=== PATIENT | female | born 1980 | race Caucasian/White ===

== ENCOUNTER 2017-01-14 10:59 | Emergency (ER) | payer SELFPAY ==
[2017-01-14 13:37] LABS: APPEARANCE,URINE CLOUDY; BILIRUBIN,URINE NEGATIVE (NEGATIVE); GLUCOSE, URINE NEGATIVE (NEGATIVE); KETONES,URINE NEGATIVE (NEGATIVE); LEUKOCYTE ESTERASE,URINE LARGE (NEGATIVE); NITRITE,URINE NEGATIVE (NEGATIVE); PROTEIN,URINE NEGATIVE (NEGATIVE); URINE SPECIFIC GRAVITY 1.018; UROBILINOGEN,URINE NEGATIVE mg/dL (<2.0)
[2017-01-14 14:11] LABS: ABSOLUTE EOSINOPHILS # (AUTO) 0.1 10^3/uL (0.0-0.6); ABSOLUTE LYMPHOCYTES (AUTO) 2.9 10^3/uL (0.5-4.7); ABSOLUTE MONOCYTES (AUTO) 0.5 10^3/uL (0.1-1.4); ABSOLUTE NEUT (AUTO) 5.5 10^3/uL (1.7-8.2); BASOPHILS % (AUTO) 0.5 % (0-2); EOSINOPHILS % (AUTO) 0.7 % (0-6); HEMATOCRIT 37.8 % (36.0-47.0); HEMOGLOBIN 12.6 g/dL (12.0-15.5); LYMPHOCYTES % (AUTO) 32.2 % (13-45); MEAN CORPUSCULAR HEMOGLOBIN 28.3 pg (27.0-33.4); MEAN CORPUSCULAR HGB CONC 33.3 g/dL (32.0-36.0); MEAN CORPUSCULAR VOLUME 85 fl (80-97); MONOCYTES % (AUTO) 5.6 % (3-13); RED BLOOD COUNT 4.45 10^6/uL (3.72-5.28); RED CELL DISTRIBUTION WIDTH 16.2 % (11.5-14.0)
--- NOTE | 2017-01-14 14:19 | ER Document Report ---
ED GI/ - General Chief Complaint: Pain With Urination Stated Complaint: URINARY PROBLEMS,BACK PAIN Time Seen by Provider: 01/14/17 12:56 Notes: Patient is a 36 female who presents emergency department complaining of frequency, urgency, pyuria that started on Friday. She states that her hematuria started this morning with associated left flank pain. Denies any fevers chills, vomiting, diarrhea constipation. Admits to nausea. No PCP Past medical history significant for previous orthopedic injury the right arm. Past surgical history significant for cholecystectomy, tonsils and adenoids Social history significant for [id number]-oese smoking history, rare alcohol use. Denies any drug use. No allergies TRAVEL OUTSIDE OF THE [place] IN LAST 30 DAYS: No - Related Data Allergies/Adverse Reactions: No Known Allergies Allergy (Verified 01/14/17 11:19) Past Medical History - Social History Smoking Status: Current Every Day Smoker Chew tobacco use (# tins/day): No Frequency of alcohol use: Rare Drug Abuse: None Family History: DM, Hypertension Patient has suicidal ideation: No Patient has homicidal ideation: No Renal/ Medical History: Denies: Hx Peritoneal Dialysis Past Surgical History: Reports: Hx Cholecystectomy, Hx Orthopedic Surgery - right arm, Hx Tonsillectomy Review of Systems - Review of Systems Constitutional: See HPI Genitourinary: See HPI Musculoskeletal: See HPI -: Yes All other systems reviewed and negative Physical Exam - Vital signs Vitals: Temp Pulse Resp BP Pulse Ox 98.2 F 80 18 154/98 H 98 01/14/17 11:20 01/14/17 11:20 01/14/17 11:20 01/14/17 11:20 01/14/17 11:20 - Notes Notes: PHYSICAL EXAM GENERAL: Alert, interacts well. HEAD: Normocephalic, atraumatic. LUNGS: Clear to auscultation bilaterally, no wheezes, rales, or rhonchi. No respiratory distress. HEART: Regular rate and rhythm. No murmurs, gallops, or rubs. ABDOMEN: Soft, obese, nondistended, nontender. No guarding, rebound, or rigidity.. Bowel sounds present in all 4 quadrants. Female exam deferred EXTREMITIES: Moves all 4 extremities spontaneously. No edema, radial and dorsalis pedis pulses 2/4 bilaterally. No cyanosis. Back: Positive left CVA tenderness, negative right CVA tenderness. No tenderness to palpation in the paraspinous or spinous processes. NEUROLOGICAL: Alert and oriented x4. Normal speech. PSYCH: Normal affect, normal mood. SKIN: Warm, dry, normal turgor. No rashes or lesions noted. Course - Re-evaluation Re-evalutation: 01/14/17 14:53 Patient is a 36-year-old female who is hemodynamic stable, no acute distress and afebrile. Patient is tolerating p.o. without any difficulty. Evidence of white blood cell clumps noted on urinalysis indicating pyelonephritis which is consistent with history of left flank pain. Will discharge patient home on 2 week course of Bactrim and follow up with care in community clinic. Discussed signs and symptoms to be aware of indicating return to the emergency department. Patient expresses understanding. 01/14/17 18:29 The emergency department saying she is having itching after she took the Bactrim here. A new prescription for ciprofloxacin was called into her pharmacy. Discussed with patient signs and symptoms to be aware of indicating return to the emergency department. Patient expresses understanding - Vital Signs Vital signs: Temp Pulse Resp BP Pulse Ox 98.8 F 97 16 127/87 H 100 01/14/17 15:22 01/14/17 15:22 01/14/17 15:22 01/14/17 15:22 01/14/17 15:22 - Laboratory Result Diagrams: 01/14/17 13:50 01/14/17 13:50 Laboratory results interpreted by me: 01/14/17 01/14/17 11:25 13:50 RDW 16.2 H Ur Leukocyte Esterase LARGE H Discharge - Discharge Clinical Impression: Pyelonephritis Condition: Good Disposition: HOME, SELF-CARE Instructions: Trimethoprim-Sulfa ([facility]) Additional Instructions: PYELONEPHRITIS: Your evaluation shows evidence of pyelonephritis. This is an infection in the kidney. Typical symptoms are fever, pain in the flank, pain on urination, and frequent urination. Many cases of pyelonephritis can be treated at home. Hospital care may be necessary for patients who are very ill, or elderly or . Pyelonephritis is treated with antibiotics. Be sure to take all the medication as prescribed. Drink plenty of liquids (about three quarts per day) . You may take acetaminophen for fever. You should feel significantly improved within two days. You should have a recheck of your urine in about one week to insure that the infection is gone. Return for a re-examination if your symptoms worsen in any way -- such as high fever, shaking chills, severe weakness or dizziness, severe pain, or inability to pass your urine. ANTINAUSEA MEDICATION: You have been given a medication to suppress nausea and vomiting. This type of medication can be given as a shot, pill, or suppository. It will usually last for many hours. Pills and shots usually last six to eight hours, suppositories last about 12 hours. For the typical illness, only one or two doses of the medication may be necessary. Mild lightheadedness may occur. This type of medicine can cause drowsiness. Do not drive or operate dangerous machinery while under its influence. Do not mix with alcohol. See your doctor at once if you have muscle spasms or tightness, or uncontrollable motions (particularly of the neck, mouth, or jaw). Persistent vomiting or severe lightheadedness should also be evaluated by the physician. ANTIBIOTIC THERAPY: You have been given an antibiotic prescription. It's important that you take all the medication, unless instructed otherwise by your physician. Failure to complete the entire course can result in relapse of your condition. Common side effects of antibiotics include nausea, intestinal cramping, or diarrhea. Women may develop vaginal yeast infections, and babies can get yeast (thrush) in the mouth following the use of antibiotics. Contact your physician if you develop significant side effects from this medication. Allergy to this antibiotic can result in hives, wheezing, faintness, or itching. If symptoms of allergy occur, stop the medication and call the doctor. ROCEPHIN: You have been given an injection of an antibiotic called Rocephin ( ceftriaxone). Sometimes the injection must be combined with antibiotic pills. For some infections, such as an uncomplicated ear infection, Rocephin provides all the antibiotic that's needed. The antibiotic will be in your body for about two days. For serious infections, we usually repeat doses of Rocephin daily. Side effects are very unusual following a shot. Women may develop vaginal yeast infections, and babies can get yeast (thrush) in the mouth following the use of antibiotics. Contact your physician if you have symptoms with this medication. Allergy to this antibiotic can result in hives, wheezing, faintness, or itching. If symptoms of allergy occur, call the doctor at once. TRIMETHOPRIM-SULFA: You have been given a prescription for trimethoprim-sulfa (TMS, Septra, Bactrim). This is a combination antibiotic of the sulfa class, often used for urinary tract infections, middle ear infections, bronchitis, shigella intestinal infection, and Pneumocystis pneumonia. TMS is usually well-tolerated. Occasional side effects include nausea and decreased appetite. Septra is not recommended for infants less than two months of age. Do not take this medication if you have experienced severe side effects or allergy to sulfa medicine. You should stop this medicine at once and contact your physician if you develop any rash, joint pain, shortness of breath, bruising, or jaundice ( yellow color in the skin), or if you develop any other new or unusual symptoms. USE OF ACETAMINOPHEN (Tylenol): Acetaminophen may be taken for pain relief or fever control. It's much safer than aspirin, offering a wider range of "safe" dosages. It is safe during . Some brand names are Tylenol, Panadol, Datril, Anacin 3, Tempra, and Liquiprin. Acetaminophen can be repeated every four hours. The following are maximum recommended dosages: >89 pounds or adults 650 mg to 900 mg Acetaminophen can be repeated every four hours. Maximum dose not to exceed 4000 mg a day. ORAL NARCOTIC MEDICATION: You have been given a prescription for pain control. This medication is a narcotic. It's best taken with food, as nausea can result if taken on an empty stomach. Don't operate machinery or drive within six hours of taking this medication. Do not combine this medicine with alcohol, or with any medication which can cause sedation (such as cold tablets or sleeping pills) unless you get permission from the physician. Narcotics tend to cause constipation. If possible, drink plenty of fluids and eat a diet high in fiber and fruits. Please be aware that prescription narcotics also have the potential for abuse. People become addicted to these medications because of the general sense of wellbeing that they induce. This feeling along with a significant reduction in tension, anxiety, and aggression provides a stimulating seductive quality to these drugs. Once your pain is under control, we encourage you to discard your unused narcotics. FOLLOW-UP CARE: If you have been referred to a physician for follow-up care, call the physician s office for an appointment as you were instructed or within the next two days. If you experience worsening or a significant change in your symptoms, notify the physician immediately or return to the Emergency Department at any time for re-evaluation. Prescriptions: Sulfamethoxazole/Trimethoprim [Bactrim Ds Tablet] 1 each PO BID 14 Days Forms: Return to Work [facility]errals: [facility] [NO LOCAL MD] - Follow up as needed NOHELIA ALCANTAR MD [NO LOCAL MD] - Follow up as needed KORY APPLE DO [NO LOCAL MD] - Follow up as needed
[2017-01-14] MEDS ORDERED: SULFAMETHOXAZOLE/TRIMETHOPRIM 800-160 MG TABLET PO ONE (14:21)
[2017-01-14] MEDS ORDERED: CEFTRIAXONE INJ 250 MG VIAL IM ONE (14:21)
[2017-01-14] MEDS ORDERED: LIDOCAINE 1% INJ-PF (10 MG/ML) 30 ML SDV INJ ONE (14:21)
[2017-01-14 14:33] LABS: ANION GAP 6 (5-19); BLOOD UREA NITROGEN 13 mg/dL (7-20); CALCIUM 9.3 mg/dL (8.4-10.2); CARBON DIOXIDE 29 mmol/L (22-30); CHLORIDE 104 mmol/L (98-107); CREATININE RESULT 0.81 mg/dL (0.52-1.25); GLUCOSE 93 mg/dL (75-110); POTASSIUM 4.4 mmol/L (3.6-5.0); SODIUM 139.2 mmol/L (137-145)
[2017-01-14] MEDS ORDERED: ONDANSETRON ODT 4 MG TAB (6 TAB/DSPK) PO PRN (14:58)
[2017-01-14] MEDS ORDERED: HYDROCODONE/ACETAMINOPHEN 5-325 MG 6 TAB/DSPK PO PRN (14:58)
[2017-01-14 15:23] VITALS: BP 127/87
== END 2017-01-14 15:22 | disposition home or self-care (01) ==
LOC: ER 10:59
DX: N12 Tubulo-interstitial nephritis, not specified as acute or chronic (principal); L29.9 Pruritus, unspecified; T37.0X5A Adverse effect of sulfonamides, initial encounter; Y92.238 Other place in hospital as the place of occurrence of the external cause; R31.9 Hematuria, unspecified; R30.0 Dysuria; R39.15 Urgency of urination; R35.0 Frequency of micturition; R10.9 Unspecified abdominal pain; R11.0 Nausea; F17.200 Nicotine dependence, unspecified, uncomplicated
CPT/HCPCS: 99283; 96372; 36415; 85025; 81025; 80048; 81001; J3490; J0696

== ENCOUNTER 2017-04-26 16:15 | Emergency (ER) | payer SELFPAY ==
[2017-04-26] MEDS ORDERED: ONDANSETRON HCL INJ/PF 4 MG/2 ML SDV IV ONE (16:29)
[2017-04-26] MEDS ORDERED: NORMAL SALINE 1000 ML 1,000 ML IV ONE (16:29)
[2017-04-26] MEDS ORDERED: MORPHINE SULFATE 10 MG/ML INJ IV ONE (16:29)
--- NOTE | 2017-04-26 16:31 | ER Document Report ---
ED Medical Screen (RME) - General Chief Complaint: Bloody Stools Stated Complaint: ABDOMINAL PAIN Time Seen by Provider: 04/26/17 16:28 Mode of Arrival: Ambulatory Information source: Patient Notes: 37-year-old female who has had a recent colonoscopy presents with complaints of nausea with diarrhea noting to have bright red/darkish red blood I have greeted and performed a rapid initial assessment of this patient. A comprehensive ED assessment and evaluation of the patient, analysis of test results and completion of the medical decision making process will be conducted by additional ED providers. PHYSICAL EXAMINATION: GENERAL: Morbidly obese female HEAD: Atraumatic, normocephalic. EYES: Pupils equal round extraocular movements intact, conjunctiva are normal. ENT: Nares patent NECK: Normal range of motion LUNGS: No respiratory distress Musculoskeletal: Normal range of motion NEUROLOGICAL: Normal speech, normal gait. PSYCH: Normal mood, normal affect. SKIN: Warm, Dry, normal turgor, no rashes or lesions noted. TRAVEL OUTSIDE OF THE [place] IN LAST 30 DAYS: No - Related Data Allergies/Adverse Reactions: sulfamethoxazole [From Bactrim] Allergy (Verified 04/26/17 16:29) trimethoprim [From Bactrim] Allergy (Verified 04/26/17 16:29) Past Medical History - Social History Chew tobacco use (# tins/day): No Frequency of alcohol use: None Drug Abuse: None Renal/ Medical History: Denies: Hx Peritoneal Dialysis GI Medical History: Reports: Hx Gastroesophageal Reflux Disease Past Surgical History: Reports: Hx Cholecystectomy, Hx Orthopedic Surgery - right arm, Hx Tonsillectomy - Immunizations Hx Diphtheria, Pertussis, Tetanus Vaccination: No Physical Exam - Vital signs Vitals: Temp Pulse Resp BP Pulse Ox 99.4 F 127 H 22 H 154/104 H 98 04/26/17 16:19 04/26/17 16:19 04/26/17 16:19 04/26/17 16:19 04/26/17 16:19 Course - Vital Signs Vital signs: Temp Pulse Resp BP Pulse Ox 99.4 F 127 H 22 H 154/104 H 98 04/26/17 16:19 04/26/17 16:19 04/26/17 16:19 04/26/17 16:19 04/26/17 16:19
[2017-04-26 17:24] LABS: ABSOLUTE BASOPHILS # (AUTO) 0.1 10^3/uL (0.0-0.2); ABSOLUTE EOSINOPHILS # (AUTO) 0.1 10^3/uL (0.0-0.6); ABSOLUTE LYMPHOCYTES (AUTO) 3.3 10^3/uL (0.5-4.7); ABSOLUTE MONOCYTES (AUTO) 0.6 10^3/uL (0.1-1.4); ABSOLUTE NEUT (AUTO) 6.3 10^3/uL (1.7-8.2); BASOPHILS % (AUTO) 1.3 % (0-2); EOSINOPHILS % (AUTO) 0.9 % (0-6); HEMATOCRIT 38.8 % (36.0-47.0); HEMOGLOBIN 13.2 g/dL (12.0-15.5); HGB HCT DIFFERENCE 0.8; LYMPHOCYTES % (AUTO) 31.3 % (13-45); MEAN CORPUSCULAR HEMOGLOBIN 29.8 pg (27.0-33.4); MEAN CORPUSCULAR HGB CONC 33.9 g/dL (32.0-36.0); MEAN CORPUSCULAR VOLUME 88 fl (80-97); MONOCYTES % (AUTO) 6.2 % (3-13); RED BLOOD COUNT 4.41 10^6/uL (3.72-5.28); RED CELL DISTRIBUTION WIDTH 16.1 % (11.5-14.0); SEGMENTED NEUTROPHILS % (AUTO) 60.3 % (42-78); WHITE BLOOD COUNT 10.4 10^3/uL (4.0-10.5)
[2017-04-26 17:43] LABS: ALANINE AMINOTRANSFERASE 37 U/L (9-52); ALBUMIN 4.4 g/dL (3.5-5.0); ALKALINE PHOSPHATASE 130 U/L (38-126); ANION GAP 10 (5-19); ASPARTATE AMINO TRANSFERASE 37 U/L (14-36); BILIRUBIN,DIRECT 0.4 mg/dL (0.0-0.4); BILIRUBIN,TOTAL 0.8 mg/dL (0.2-1.3); BLOOD UREA NITROGEN 11 mg/dL (7-20); CALCIUM 9.9 mg/dL (8.4-10.2); CARBON DIOXIDE 26 mmol/L (22-30); CHLORIDE 102 mmol/L (98-107); CREATININE RESULT 0.82 mg/dL (0.52-1.25); GLUCOSE 86 mg/dL (75-110); POTASSIUM 4.6 mmol/L (3.6-5.0); SODIUM 138.2 mmol/L (137-145)
--- NOTE | 2017-04-26 19:40 | ER Document Report ---
ED General - General Chief Complaint: Bloody Stools Stated Complaint: ABDOMINAL PAIN Time Seen by Provider: 04/26/17 16:28 Mode of Arrival: Ambulatory Notes: Patient is a 37-year-old female with a past medical history of morbid obesity who presents with a single episode of bright red blood per rectum which she states covered the toilet paper and was also noted in the bowl. She has no history of similar symptoms in the past. She has not had any additional bloody bowel movement since that time. Denies any active rectal bleeding at this time. She does not use any anti-coagulation. She has had a colonoscopy in the past and was told that she had polyps but no additional findings. She has not seen her primary care doctor regarding today's concerns. She denies any abdominal pain, vomiting, fever or constitutional symptoms. Nothing has been noted to improve or worsen her symptoms. TRAVEL OUTSIDE OF THE [place] IN LAST 30 DAYS: No - Related Data Allergies/Adverse Reactions: sulfamethoxazole [From Bactrim] Allergy (Verified 04/26/17 16:29) trimethoprim [From Bactrim] Allergy (Verified 04/26/17 16:29) Past Medical History - General Information source: Patient - Social History Smoking Status: Never Smoker Chew tobacco use (# tins/day): No Frequency of alcohol use: None Drug Abuse: None Family History: DM, Hypertension Renal/ Medical History: Denies: Hx Peritoneal Dialysis GI Medical History: Reports: Hx Gastroesophageal Reflux Disease Past Surgical History: Reports: Hx Cholecystectomy, Hx Orthopedic Surgery - right arm, Hx Tonsillectomy - Immunizations Hx Diphtheria, Pertussis, Tetanus Vaccination: No Review of Systems - Review of Systems Notes: Constitutional: Negative for fever. HENT: Negative for sore throat. Eyes: Negative for visual changes. Cardiovascular: Negative for chest pain. Respiratory: Negative for shortness of breath. Gastrointestinal: Negative for abdominal pain, vomiting or diarrhea. Positive for bright red blood per rectum Genitourinary: Negative for dysuria. Musculoskeletal: Negative for back pain. Skin: Negative for rash. Neurological: Negative for headaches, weakness or numbness. 10 point ROS negative except as marked above and in HPI. Physical Exam - Vital signs Vitals: Temp Pulse Resp BP Pulse Ox 99.4 F 127 H 22 H 154/104 H 98 04/26/17 16:19 04/26/17 16:19 04/26/17 16:19 04/26/17 16:19 04/26/17 16:19 Interpretation: Tachycardic - Resolved at time of my assessment Notes: PHYSICAL EXAMINATION: GENERAL: Morbidly obese patient. In no acute distress. HEAD: Atraumatic, normocephalic. EYES: Pupils equal round and reactive to light, extraocular movements intact, sclera anicteric, conjunctiva are normal. ENT: nares patent, oropharynx clear without exudates. Moist mucous membranes. NECK: Normal range of motion, supple without lymphadenopathy LUNGS: Breath sounds clear to auscultation bilaterally and equal. No wheezes rales or rhonchi. HEART: Regular rate and rhythm without murmurs ABDOMEN: Morbidly obese abdomen. Soft, nontender, normoactive bowel sounds. No guarding, no rebound. No masses appreciated. Rectal: No gross blood. No masses. EXTREMITIES: Normal range of motion, no pitting or edema. No cyanosis. NEUROLOGICAL: No focal neurological deficits. Moves all extremities spontaneously and on command. PSYCH: Normal mood, normal affect. SKIN: Warm, Dry, normal turgor, no rashes or lesions noted. Course - Re-evaluation Re-evalutation: 04/26/17 19:38 Patient presents after having a single episode of bright red blood per rectum, no active bleeding at this time. She arrived tachycardic but this was resolved at the time of my evaluation the patient. Rectal examination is without any blood. Her hemoglobin is within normal limits. Suspect likely hemorrhoidal bleeding versus a very brief diverticular bleed. I have recommended the patient have an outpatient colonoscopy at her earliest ability. I do not see an indication for inpatient admission, serial CBCs, or emergent GI consultation based on her normalization of vitals, normal hemoglobin, and absence of any rectal bleeding on exam. At this time will discharge with return precautions and follow-up recommendations. Verbal discharge instructions given a the bedside and opportunity for questions given. Medication warnings reviewed. Patient is in agreement with this plan and has verbalized understanding of return precautions and the need for primary care follow-up in the next 24-72 hours. - Vital Signs Vital signs: Temp Pulse Resp BP Pulse Ox 98.3 F 81 20 126/86 H 99 04/26/17 20:02 04/26/17 20:02 04/26/17 20:02 04/26/17 20:02 04/26/17 20:02 - Laboratory Result Diagrams: 04/26/17 17:04 04/26/17 17:04 Laboratory results interpreted by me: 04/26/17 04/26/17 17:04 17:04 RDW 16.1 H AST 37 H Alkaline Phosphatase 130 H Discharge - Discharge Clinical Impression: Bright red blood per rectum Condition: Good Disposition: HOME, SELF-CARE Additional Instructions: Please return to the emergency department immediately if you have any recurrence of a concerning amount of rectal bleeding. There is only a small amount of blood on toilet paper that is okay but if you notice that the entire toilet bowl is covered in blood that is worrisome and I would like you to return immediately. Please also return if you pass out, become lightheaded, have abdominal pain, vomiting, vomiting of blood, or any other symptoms that are worrisome to you. Please follow-up with a GI physician in the next 2-3 days. Referrals: ARNAV HOPPER MD [ACTIVE STAFF] - Follow up in 3-5 days
[2017-04-26 20:05] VITALS: BP 126/86
== END 2017-04-26 20:02 | disposition home or self-care (01) ==
LOC: ER 16:15
DX: R10.9 Unspecified abdominal pain (principal); E66.01 Morbid (severe) obesity due to excess calories
CPT/HCPCS: 99284; 96361; 96374; 96375; 36415; 83690; 85025; 80053; J2270; J2405; J7030

== ENCOUNTER 2017-08-25 10:39 | Emergency (ER) | payer OTHER ==
[2017-08-25] MEDS ORDERED: ACETAMINOPHEN 325 MG TABLET PO ONE (11:47)
--- NOTE | 2017-08-25 12:35 | RADIOLOGY REPORT (SQ) ---
EXAM DESCRIPTION: FOOT LEFT COMPLETE COMPLETED DATE/TIME: 08/25/2017 12:17 pm REASON FOR STUDY: pain and swelling COMPARISON: None. NUMBER OF VIEWS: Three views. TECHNIQUE: AP, lateral and oblique radiographic images acquired of the left foot. LIMITATIONS: None. FINDINGS: MINERALIZATION: Normal. BONES: No acute fracture or dislocation. No worrisome bone lesions. Mild posterior and plantar calc aneal spurring. JOINTS: No effusions. SOFT TISSUES: No soft tissue swelling. No foreign body. OTHER: No other significant finding. IMPRESSION: CALCANEAL SPURRING. NO ACUTE OSSEOUS ABNORMALITY. TECHNICAL DOCUMENTATION: JOB ID: [id number] [employer]- All Rights Reserved
--- NOTE | 2017-08-25 12:36 | RADIOLOGY REPORT (SQ) ---
EXAM DESCRIPTION: ANKLE LEFT COMPLETE COMPLETED DATE/TIME: 08/25/2017 12:17 pm REASON FOR STUDY: pain and swelling COMPARISON: None. NUMBER OF VIEWS: Three views. TECHNIQUE: AP, lateral, and oblique radiographic images acquired of the left ankle. LIMITATIONS: None. FINDINGS: MINERALIZATION: Normal. BONES: No acute fracture or dislocation. No worrisome bone lesions. Mild posterior and plantar calc aneal spurring. JOINTS: No effusions. SOFT TISSUES: No soft tissue swelling. No foreign body. OTHER: No other significant finding. IMPRESSION: CALCANEAL SPURRING. NO ACUTE OSSEOUS ABNORMALITY. TECHNICAL DOCUMENTATION: JOB ID: [id number] [employer]- All Rights Reserved
--- NOTE | 2017-08-25 13:25 | ER Document Report ---
ED Extremity Problem, Lower - General Chief Complaint: Foot Pain Stated Complaint: LEFT FOOT PAIN Time Seen by Provider: 08/25/17 11:06 Mode of Arrival: Ambulatory Information source: Patient Notes: A 37-year-old female presented to ED for complaint of pain and swelling to the left foot. She states she woke up with this pain in the morning. She denies any falls or injuries. This is a 219.7 kg morbidly obese woman. It was no swelling noted to the foot at this time. Both feet and ankle appear to be the same size TRAVEL OUTSIDE OF THE [place] IN LAST 30 DAYS: No - HPI Patient complains to provider of: Pain, Swelling Location: Foot Occurred: This morning Where: Home Onset/Duration: Gradual - She woke up with Quality of pain: Achy, Sharp Severity: Moderate Pain Level: 4 Context: Other - Up with pain in her left foot Recent injury: No Associated symptoms: Painful ambulation Exacerbated by: Walking Relieved by: Nothing - Related Data Allergies/Adverse Reactions: sulfamethoxazole [From Bactrim] Allergy (Verified 08/25/17 11:21) trimethoprim [From Bactrim] Allergy (Verified 08/25/17 11:21) Past Medical History - General Information source: Patient - Social History Smoking Status: Current Every Day Smoker Cigarette use (# per day): Yes - Half pack per day Chew tobacco use (# tins/day): No Smoking Education Provided: Yes - 4 minutes Frequency of alcohol use: Rare Drug Abuse: None Occupation: Call center Lives with: Parents - Father Family History: Arthritis, CAD, CVA, DM, Hyperlipidemia, Hypertension, Malignancy. denies: COPD, Thyroid Disfunction Patient has suicidal ideation: No Patient has homicidal ideation: No - Past Medical History Cardiac Medical History: Reports: None Pulmonary Medical History: Reports: None EENT Medical History: Reports: None Neurological Medical History: Reports: None Endocrine Medical History: Reports: None Renal/ Medical History: Reports: None Malignancy Medical History: Reports: None GI Medical History: Reports: Hx Gastroesophageal Reflux Disease, Hx Colonoscopy Musculoskeltal Medical History: Reports Hx Musculoskeletal Trauma Skin Medical History: Reports None Psychiatric Medical History: Reports: None Traumatic Medical History: Reports: None Infectious Medical History: Reports: None Past Surgical History: Reports: Hx Adenoidectomy, Hx Cholecystectomy, Hx Orthopedic Surgery - right arm, Hx Tonsillectomy - Immunizations Hx Diphtheria, Pertussis, Tetanus Vaccination: No Review of Systems - Review of Systems Constitutional: No symptoms reported EENT: No symptoms reported Cardiovascular: No symptoms reported Respiratory: No symptoms reported Gastrointestinal: No symptoms reported Genitourinary: No symptoms reported Female Genitourinary: No symptoms reported Musculoskeletal: Other - Pain and swelling to the left foot and ankle Skin: No symptoms reported Hematologic/Lymphatic: No symptoms reported Neurological/Psychological: No symptoms reported Physical Exam - Vital signs Vitals: Temp Pulse Resp BP Pulse Ox 98.2 F 124 H 22 H 148/99 H 99 08/25/17 10:44 08/25/17 10:44 08/25/17 10:44 08/25/17 10:44 08/25/17 10:44 Interpretation: Normal - General General appearance: Appears well, Alert - HEENT Head: Normocephalic, Atraumatic Eyes: Normal Pupils: PERRL - Respiratory Respiratory status: No respiratory distress Chest status: Nontender Breath sounds: Normal Chest palpation: Normal - Cardiovascular Rhythm: Regular Heart sounds: Normal auscultation Murmur: No - Abdominal Inspection: Normal Distension: No distension Bowel sounds: Normal Tenderness: Nontender Organomegaly: No organomegaly - Back Back: Normal, Nontender - Extremities General upper extremity: Normal inspection, Nontender, Normal color, Normal ROM , Normal temperature General lower extremity: Normal inspection, Normal color, Normal ROM, Normal temperature, Normal weight bearing. No: Augustin's sign Ankle: Tender. No: Abrasion, Deformity, Ecchymosis, Edema, Instability, Laceration, Limited ROM, Positive Nicole's test, Unable to bear weight Foot: Tender - Left heel, No evidence of FB. No: Deformity, Ecchymosis, Edema, Instability, Laceration, Metatarsal compress. pain, Nail injury, Navicular tenderness, Puncture wound, Tender 5th metatarsal, Unable to bear weight - Neurological Neuro grossly intact: Yes Cognition: Normal Orientation: AAOx4 Will Coma Scale Eye Opening: Spontaneous Will Coma Scale Verbal: Oriented [place] Coma Scale Motor: Obeys Commands Will Coma Scale Total: 15 Speech: Normal Motor strength normal: LUE, RUE, LLE, RLE Sensory: Normal - Psychological Associated symptoms: Normal affect, Normal mood - Skin Skin Temperature: Warm Skin Moisture: Dry Skin Color: Normal Course - Re-evaluation Re-evalutation: 08/25/17 21:37 As discussed with patient patient encouraged to succeed and Epson salt. She was also given instructions on foot exercises for heel spurring and to follow- up with the transport aircrewman. She was given instructions for stop smoking - Vital Signs Vital signs: Temp Pulse Resp BP Pulse Ox 98.3 F 99 22 H 134/90 H 96 08/25/17 13:33 08/25/17 13:33 08/25/17 10:44 08/25/17 13:33 08/25/17 13:33 - Diagnostic Test Radiology reviewed: Image reviewed, Reports reviewed Discharge - Discharge Clinical Impression: calcaneal spurring High blood pressure Qualifiers: Hypertension type: unspecified Qualified Code(s): I10 - Essential (primary) hypertension Condition: Stable Disposition: HOME, SELF-CARE Instructions: Epsom Salt Soaks ([facility]), Exercises for the Foot Muscles ([facility]), Plantar Fasciitis or Heel Spur ([facility]) Forms: Elevated Blood Pressure, Return to Work Referrals: IVETTE MCBRIDE DPM [ACTIVE STAFF] - Follow up as needed
[2017-08-25 13:36] VITALS: BP 134/90
== END 2017-08-25 13:36 | disposition home or self-care (01) ==
LOC: ER 10:39
DX: M77.32 Calcaneal spur, left foot (principal); I10 Essential (primary) hypertension; M79.672 Pain in left foot; M25.572 Pain in left ankle and joints of left foot; E66.01 Morbid (severe) obesity due to excess calories; Z68.45 Body mass index [BMI] 70 or greater, adult; F17.210 Nicotine dependence, cigarettes, uncomplicated; Z71.6 Tobacco abuse counseling; Z88.1 Allergy status to other antibiotic agents
CPT/HCPCS: 99283; 99406

== ENCOUNTER 2018-02-25 09:44 | Emergency (ER) | payer SELFPAY ==
--- NOTE | 2018-02-25 10:09 | ER Document Report ---
ED General - General Chief Complaint: Bloody Stools Stated Complaint: BUTTOCKS PAIN Time Seen by Provider: 02/25/18 10:05 Mode of Arrival: Ambulatory Information source: Patient TRAVEL OUTSIDE OF THE [place] IN LAST 30 DAYS: No - HPI Notes: 37 yr old female presents today with bright red stool x2 this morning with LLQ abd pain this morning. Has a history of internal hemorrhoid that ruptured approximately 4 years ago, required a admission with a colonoscopy performed inpatient and ruptured hemorrhoid managed by surgery. Patient also reports left upper quadrant abdominal pain that started yesterday. Any trauma. denies fevers, chills, chest pain,palpitations, shortness of breath, dyspnea, nausea , vomiting, diarrhea, ,blurred vision, double vision, loss of vision, speech changes, LH, dizziness, syncope, headaches, wheezing, ST, URI, neck pain, weakness, bowel or bladder dysfunction, saddle anesthesia, numbness or tingling in bilateral upper or lower extremities equally, muscle paralysis, weakness in bilateral upper or lower extremities equally or rash. Denies IV drug use. - Related Data Allergies/Adverse Reactions: sulfamethoxazole [From Bactrim] Allergy (Verified 02/25/18 09:46) trimethoprim [From Bactrim] Allergy (Verified 02/25/18 09:46) Past Medical History - General Information source: Patient - Social History Smoking Status: Unknown if Ever Smoked Family History: Arthritis, CAD, CVA, DM, Hyperlipidemia, Hypertension, Malignancy. denies: COPD, Thyroid Disfunction Renal/ Medical History: Denies: Hx Peritoneal Dialysis GI Medical History: Reports: Hx Gastroesophageal Reflux Disease, Hx Colonoscopy Musculoskeltal Medical History: Reports Hx Musculoskeletal Trauma Past Surgical History: Reports: Hx Adenoidectomy, Hx Cholecystectomy, Hx Orthopedic Surgery - right arm, Hx Tonsillectomy - Immunizations Hx Diphtheria, Pertussis, Tetanus Vaccination: No Review of Systems - Review of Systems Constitutional: No symptoms reported EENT: No symptoms reported Cardiovascular: No symptoms reported Respiratory: No symptoms reported Gastrointestinal: See HPI Genitourinary: No symptoms reported Female Genitourinary: No symptoms reported Musculoskeletal: No symptoms reported Skin: No symptoms reported Hematologic/Lymphatic: No symptoms reported Neurological/Psychological: No symptoms reported Physical Exam - Vital signs Vitals: Resp BP Pulse Ox 14 134/87 H 98 02/25/18 11:14 02/25/18 11:14 02/25/18 11:14 - Notes Notes: PHYSICAL EXAMINATION: GENERAL: Well-appearing, well-nourished and in no acute distress. HEAD: Atraumatic, normocephalic. EYES: Pupils equal round and reactive to light, extraocular movements intact, conjunctiva are normal. ENT: Nares patent, oropharynx clear without exudates. Moist mucous membranes. NECK: Normal range of motion, supple without lymphadenopathy LUNGS: Breath sounds clear to auscultation bilaterally and equal. No wheezes rales or rhonchi. HEART: Regular rate and rhythm without murmurs ABDOMEN: Soft, nondistended abdomen. Left upper quadrant tenderness on palpation, with rebound. no guarding, no rebound. No masses appreciated. No CVA tenderness appreciated bilaterally Female : deferred Musculoskeletal: Normal range of motion, no pitting or edema. No cyanosis. NEUROLOGICAL: Cranial nerves grossly intact. Normal speech, normal gait. Normal sensory, motor exams PSYCH: Normal mood, normal affect. SKIN: Warm, Dry, normal turgor, no rashes or lesions noted. Course - Re-evaluation Re-evalutation: 02/25/18 16:18 37-year-old female who is afebrile, vitals stable mild distress with complaints of left upper quadrant abdominal pain, rectal bleeding that started this morning. Patient is concerned about internal bleeding. CBC negative for anemia or leukocytosis CMP negative for renal or hepatic dysfunction no electrolyte disturbances. Patient does have a UTI seen on urinalysis. CT abdomen pelvis with IV and oral contrast ordered 1400- patient brought to CT scanner, due to patient's weight tables unable to move therefore CT radiology techs unable to perform CT on patient, patient required transfer to the location for further evaluation of left upper quadrant tenderness. Patient returned back to room, discussed options with her such as [facility] were [place], she states that she would like to try [facility] for transfer. 1420- patient states she has to leave emergently as there is an emergency with her father who fell, The patient has chosen to leave the facility against medical advice. The relevant issues have been reviewed and discussed with the patient and family at the bedside. At the time of this assessment there is no indication for involuntary commitment. The patient is alert, oriented, and able to express clearly their reasoning for not wanting to remain in the emergency department for further treatment. The patient is not clinically psychotic, intoxicated, and denies and suicidal ideation. Differential or suspected diagnoses based on medical screening exam: Stomach ulcer, duodenal ulcer, biliary colic, pancreatitis, diverticular disease, IBD, kidney stones, constipation, gastritis, pneumonia, colitis The patient is aware of the concerning diagnoses and acknowledges understanding of the reasons for the following recommendations: Transferring to a facility where she can have a CT abdomen pelvis with IV and oral contrast performed to handle her body habitus. The following recommendations/services were offered and refused: Transfer to [facility] for further evaluation with CT is able to evaluate her with her body habitus The following risks were explained: , permanent disability, loss of function Clinical impression: Patient is competent to make decisions regarding the medical that is being offered. Patient stated that she will go to [facility] if her symptoms to become worse. After performing a Medical Screening Examination, I spoke with the patient at length in regards to leaving the hospital against medical advice. I do not believe the patient should leave but the patient is alert oriented x4, understands the risks and benefits of staying and leaving including disability and . Pt understands that he can return at any time for further care and is more than welcome to do so. Pt verbalizes this understanding. - Vital Signs Vital signs: Temp Pulse Resp BP Pulse Ox 17 146/61 H 98 02/25/18 13:01 02/25/18 13:01 02/25/18 13:01 - Laboratory Result Diagrams: 02/25/18 10:47 02/25/18 10:47 Laboratory results interpreted by me: 02/25/18 02/25/18 10:47 11:48 RDW 15.8 H Urine Protein 30 H Urine Nitrite POSITIVE H Ur Leukocyte Esterase LARGE H Discharge - Discharge Clinical Impression: Rectal bleeding, UTI (urinary tract infection), Abdominal pain, left upper quadrant Disposition: AGAINST MEDICAL ADVICE Additional Instructions: Abdominal Pain There are many causes of abdominal pain. Pain can mean a serious problem requiring surgery (such as appendicitis). It can also be an innocent problem that goes away on its own (such as a viral infection). Often, time must pass to determine the cause of pain. The physician does not feel that hospitalization is necessary, at present. Things may change within the next 24 hours. Call the doctor or come back for re- examination if any problems occur, such as: (1) Pain that becomes more severe, steady, or becomes concentrated in one specific area. Also, pain that is more severe with movement or coughing. (2) Vomiting that persists or becomes more frequent. (3) Blood in the vomitus, urine, or bowel movements. Blood in the stool may have a tarry or black appearance. (4) Shaking chills or fever greater than 100 degrees F. (5) The abdomen becomes more distended or swollen. (6) Bowel movements cease. (7) Failure to improve as expected. Rectal Bleeding, Unclear Cause No definite cause has been found for the rectal bleeding you have experienced. Among the possible causes are internal or external hemorrhoids ( internal hemorrhoids can't be felt on the outside), an anal fissure (a crack at the anal ring), infections or inflammatory diseases of the colon, tumors or polyps, or diverticula (diverticula are outpouchings from the colon wall). To establish a cause for your bleeding (or at least make certain there is no serious problem such as a tumor), further evaluation will be necessary. This may include special X-rays, or passage of a scope up into the colon. Be sure to keep your follow-up appointment. Should you develop brisk bleeding, abdominal pain, fever, lightheadedness, or fever, call the doctor or return at once. Prescriptions: Ondansetron [Zofran Odt 4 mg Tablet] 1 - 2 tab PO Q4H PRN #15 tab.rapdis PRN Reason: For Nausea/Vomiting Referrals: JAKE OSWALD MD [ACTIVE STAFF] - Follow up tomorrow NO MCGRATH MD [ACTIVE STAFF] - Follow up tomorrow
[2018-02-25] MEDS: NORMAL SALINE 1000 ML 1,000 ML IV PRN ×2 (10:49→12:31)
[2018-02-25 11:03] LABS: ABSOLUTE EOSINOPHILS # (AUTO) 0.1 10^3/uL (0.0-0.6); ABSOLUTE LYMPHOCYTES (AUTO) 2.1 10^3/uL (0.5-4.7); ABSOLUTE MONOCYTES (AUTO) 0.7 10^3/uL (0.1-1.4); ABSOLUTE NEUT (AUTO) 4.9 10^3/uL (1.7-8.2); BASOPHILS % (AUTO) 0.4 % (0-2); EOSINOPHILS % (AUTO) 0.9 % (0-6); HEMATOCRIT 38.5 % (36.0-47.0); HEMOGLOBIN 13.1 g/dL (12.0-15.5); LYMPHOCYTES % (AUTO) 27.4 % (13-45); MEAN CORPUSCULAR HEMOGLOBIN 29.5 pg (27.0-33.4); MEAN CORPUSCULAR VOLUME 87 fl (80-97); MONOCYTES % (AUTO) 8.6 % (3-13); PLATELET COUNT 276 10^3/uL (150-450); RED BLOOD COUNT 4.43 10^6/uL (3.72-5.28); RED CELL DISTRIBUTION WIDTH 15.8 % (11.5-14.0); SEGMENTED NEUTROPHILS % (AUTO) 62.7 % (42-78); TOTAL CELLS COUNTED % (AUTO) 100 %; WHITE BLOOD COUNT 7.8 10^3/uL (4.0-10.5)
[2018-02-25 11:04] LABS: INTERNATIONAL RATION (INR) 0.92; PROTHROMBIN TIME 12.8 SEC (11.4-15.4)
[2018-02-25 11:05] LABS: PARTIAL THROMBOPLASTIN TIME 28.3 SEC (23.5-35.8)
[2018-02-25] MEDS ORDERED: PANTOPRAZOLE SODIUM 40 MG VIAL IV ONE (11:15)
[2018-02-25 11:22] LABS: ALANINE AMINOTRANSFERASE 35 U/L (9-52); ALKALINE PHOSPHATASE 105 U/L (38-126); ANION GAP 10 (5-19); ASPARTATE AMINO TRANSFERASE 33 U/L (14-36); BILIRUBIN,DIRECT 0.4 mg/dL (0.0-0.4); BILIRUBIN,TOTAL 0.5 mg/dL (0.2-1.3); BLOOD UREA NITROGEN 13 mg/dL (7-20); CALCIUM 9.2 mg/dL (8.4-10.2); CARBON DIOXIDE 29 mmol/L (22-30); CHLORIDE 105 mmol/L (98-107); CREATINE KINASE 71 U/L (30-135); GLUCOSE 97 mg/dL (75-110); POTASSIUM 4.1 mmol/L (3.6-5.0); SODIUM 143.8 mmol/L (137-145); TOTAL PROTEIN 7.1 g/dL (6.3-8.2)
[2018-02-25 11:38] LABS: CREATINE KINASE MB < 0.22 ng/mL (<4.55)
[2018-02-25 11:59] LABS: TROPONIN I < 0.012 ng/mL
[2018-02-25] MEDS ORDERED: ONDANSETRON HCL INJ/PF 4 MG/2 ML SDV IV ONE (12:04)
[2018-02-25 12:05] LABS: APPEARANCE,URINE CLOUDY; BILIRUBIN,URINE NEGATIVE (NEGATIVE); COLOR,URINE YELLOW; GLUCOSE, URINE NEGATIVE (NEGATIVE); KETONES,URINE NEGATIVE (NEGATIVE); LEUKOCYTE ESTERASE,URINE LARGE (NEGATIVE); NITRITE,URINE POSITIVE (NEGATIVE); PROTEIN,URINE 30 mg/dL (NEGATIVE); URINE SPECIFIC GRAVITY 1.018; UROBILINOGEN,URINE NEGATIVE mg/dL (<2.0)
[2018-02-25] MEDS ORDERED: PROCHLORPERAZINE EDISYLATE INJ 10 MG/2 ML VIAL IV ONE (12:19)
[2018-02-25 13:08] VITALS: BP 146/61
--- NOTE | 2018-02-25 14:11 | EKG REPORT ---
SEVERITY:- NORMAL ECG - SINUS RHYTHM : Confirmed by: Talat Gandara MD 25-Feb-2018 14:10:53
== END 2018-02-25 14:40 | disposition left against medical advice (07) ==
LOC: ER 09:44
DX: K62.5 Hemorrhage of anus and rectum (principal); N39.0 Urinary tract infection, site not specified; R10.12 Left upper quadrant pain; R10.32 Left lower quadrant pain; Z87.19 Personal history of other diseases of the digestive system; Z98.890 Other specified postprocedural states; Z88.1 Allergy status to other antibiotic agents; Z53.29 Procedure and treatment not carried out because of patient's decision for other reasons
CPT/HCPCS: 93005; 99285; 96361; 96374; 36415; 87086; 82553; 82550; 83690; 84703; 85025; 85610; 85730; 87088; 80053; 81001; 84484; 87186; 83605; 93010; S0164; J0780; J7030

== ENCOUNTER 2018-11-07 18:37 | Emergency (ER) | payer SELFPAY ==
[2018-11-07 19:04] LABS: ABSOLUTE BASOPHILS # (AUTO) 0.1 10^3/uL (0.0-0.2); ABSOLUTE EOSINOPHILS # (AUTO) 0.1 10^3/uL (0.0-0.6); ABSOLUTE LYMPHOCYTES (AUTO) 3.1 10^3/uL (0.5-4.7); ABSOLUTE MONOCYTES (AUTO) 0.6 10^3/uL (0.1-1.4); ABSOLUTE NEUT (AUTO) 8.3 10^3/uL (1.7-8.2); BASOPHILS % (AUTO) 1.1 % (0-2); EOSINOPHILS % (AUTO) 1.2 % (0-6); HEMATOCRIT 35.5 % (36.0-47.0); HEMOGLOBIN 12.3 g/dL (12.0-15.5); LYMPHOCYTES % (AUTO) 25.4 % (13-45); MEAN CORPUSCULAR HEMOGLOBIN 29.9 pg (27.0-33.4); MEAN CORPUSCULAR HGB CONC 34.7 g/dL (32.0-36.0); MEAN CORPUSCULAR VOLUME 86 fl (80-97); PLATELET COUNT 363 10^3/uL (150-450); RED BLOOD COUNT 4.12 10^6/uL (3.72-5.28); RED CELL DISTRIBUTION WIDTH 16.5 % (11.5-14.0); SEGMENTED NEUTROPHILS % (AUTO) 67.3 % (42-78); TOTAL CELLS COUNTED % (AUTO) 100 %; WHITE BLOOD COUNT 12.3 10^3/uL (4.0-10.5)
--- NOTE | 2018-11-07 19:16 | RADIOLOGY REPORT (SQ) ---
EXAM DESCRIPTION: CHEST SINGLE VIEW COMPLETED DATE/TIME: 11/07/2018 7:07 pm REASON FOR STUDY: cp COMPARISON: None. EXAM PARAMETERS: NUMBER OF VIEWS: One view. TECHNIQUE: Single frontal radiographic view of the chest acquired. RADIATION DOSE: NA LIMITATIONS: Body habitus FINDINGS: LUNGS AND PLEURA: No opacities, masses or pneumothorax. No pleural effusion. MEDIASTINUM AND HILAR STRUCTURES: No masses. Contour normal. HEART AND VASCULAR STRUCTURES: Heart normal in size. Normal vasculature. BONES: No acute findings. HARDWARE: None in the chest. OTHER: No other significant finding. IMPRESSION: NO ACUTE RADIOGRAPHIC FINDING IN THE CHEST. TECHNICAL DOCUMENTATION: JOB ID: [id number] [employer]- All Rights Reserved Reading location - IP/workstation name: [email or web address]
[2018-11-07 19:24] LABS: ALANINE AMINOTRANSFERASE 23 U/L (9-52); ALBUMIN 4.3 g/dL (3.5-5.0); ALKALINE PHOSPHATASE 153 U/L (38-126); ANION GAP 9 (5-19); ASPARTATE AMINO TRANSFERASE 61 U/L (14-36); BILIRUBIN,DIRECT 0.5 mg/dL (0.0-0.4); BILIRUBIN,TOTAL 0.7 mg/dL (0.2-1.3); BLOOD UREA NITROGEN 15 mg/dL (7-20); CALCIUM 9.7 mg/dL (8.4-10.2); CARBON DIOXIDE 25 mmol/L (22-30); CHLORIDE 103 mmol/L (98-107); GLUCOSE 103 mg/dL (75-110); SODIUM 137.4 mmol/L (137-145)
--- NOTE | 2018-11-07 19:25 | ER Document Report ---
ED General - General Chief Complaint: Chest Pain Stated Complaint: CHEST PAIN Time Seen by Provider: 11/07/18 18:46 Primary Care Provider: JESUS HOPPER MD [EMERITUS] - Follow up in 3-5 days (cardiology ) Notes: Patient is a 38-year-old female that presents to the emergency department for chief complaint of chest pain. The patient reports that the pain started about 30 minutes prior to ED arrival, while she was at rest and laughing with friends and family. The currently rate the pain as 0 out of 10, and described as a squeezing sensation when it did occur. They have had associated brief shortness of breath and a flushed sensation which has since resolved. Denies any difficulty breathing, recent illness, nausea, vomiting, abdominal pain, denies recent travel, or leg swelling or edema. Their risk factors for heart disease include obesity and the patient smokes cigarettes. She denies noting that the pain was worse with exertion, EMS was called, she was given aspirin, and nitro Nitropaste in route Past Medical History: Denies chronic medical conditions Past Surgical History: Cholecystectomy, tonsillectomy Social History: Admits to smoking cigarettes, denies alcohol or drug use. Family History: Reviewed and noncontributory for presenting illness Allergies: Reviewed, see documented allergy list. REVIEW OF SYSTEMS: Other than noted above, the 12 point review of systems was reviewed with the patient and were negative, all pertinent findings are included in the HPI. PHYSICAL EXAMINATION: Vital signs reviewed, nursing noted reviewed. GENERAL: Morbidly obese female, no acute distress, resting comfortably in bed HEAD: Atraumatic, normocephalic. EYES: Eyes appear normal, extraocular movements intact, sclera anicteric, conjunctiva are normal. ENT: nares patent, oropharynx clear without exudates. Moist mucous membranes. NECK: Normal range of motion, supple without lymphadenopathy LUNGS: Breath sounds clear to auscultation bilaterally and equal. No wheezes rales or rhonchi. HEART: Regular rate and rhythm without murmurs ABDOMEN: Soft, obese, nontender, normoactive bowel sounds. No rebound, guarding, or rigidity. No masses appreciated. EXTREMITIES: Nontender, good range of motion, no pitting or edema. NEUROLOGICAL: No focal neurological deficits. Moves all extremities sp ontaneously Motor and sensory grossly intact on exam. PSYCH: Normal mood, normal affect. SKIN: Warm, Dry, normal turgor, no rashes or lesions noted on exposed skin TRAVEL OUTSIDE OF THE [place] IN LAST 30 DAYS: No - Related Data Allergies/Adverse Reactions: sulfamethoxazole [From Bactrim] Allergy (Verified 02/25/18 09:46) trimethoprim [From Bactrim] Allergy (Verified 02/25/18 09:46) Past Medical History - Social History Smoking Status: Current Every Day Smoker Frequency of alcohol use: None Drug Abuse: None Family History: Arthritis, CAD, CVA, DM, Hyperlipidemia, Hypertension, M alignancy. denies: COPD, Thyroid Disfunction Patient has suicidal ideation: No Patient has homicidal ideation: No Renal/ Medical History: Denies: Hx Peritoneal Dialysis GI Medical History: Reports: Hx Gastroesophageal Reflux Disease, Hx Colonoscopy Musculoskeletal Medical History: Reports Hx Musculoskeletal Trauma Past Surgical History: Reports: Hx Adenoidectomy, Hx Cholecystectomy, Hx Orthopedic Surgery - right arm, Hx Tonsillectomy - Immunizations Hx Diphtheria, Pertussis, Tetanus Vaccination: No Physical Exam - Vital signs Vitals: Temp Pulse Resp BP Pulse Ox 98.3 F 88 20 136/88 H 97 11/07/18 18:39 11/07/18 18:39 11/07/18 18:39 11/07/18 18:39 11/07/18 18:39 Course - Re-evaluation Re-evalutation: Presentation of chest pain in an otherwise well appearing patient. Low clinical suspicion for ACS given clinical history, exam, EKG without ST elevations or depressions, and negative initial troponin. HEART score less than or equal to 3. PE also seems unlikely given clinical history, absence of tachycardia or dyspnea. Patient is PERC criteria negative. CXR without evidence of pneumothorax or pneumonia. No widened mediastinum. Aortic dissection also seems unlikely given history, symmetric pulses, CXR, and vitals. HEART Score: History 0 ECG 0 Age 0 Risk Factors 1 Troponin 0 Total: 1 Chest pain in a patient without evidence of cardiac or other serious etiology on workup today. I discussed with patient that, based on their age, risk factors and emergency department testing today, the likelihood that their symptoms are r elated to a heart attack is very low (estimated risk of heart attack or over the next 30 days of less than 1%). The patient demonstrates decision making capacity and has verbalized an understanding of these risks to me. Based on this, the patient has chosen to follow-up as an outpatient. Usual chest pain return precautions reviewed. The patient states understanding and agreement with this plan. Patient's workup was essentially unremarkable, negative troponins x2, chest x- ray negative, EKG was nonischemic as noted, blood work essentially otherwise unremarkable, mild leukocytosis, without evidence of acute infection on exam, there is mild elevation in LFTs, most likely fatty liver disease in the patient is super morbidly obese, patient made aware of all findings and advised to foll ow-up with a lining maker to have stress testing, she is given referral. - Vital Signs Vital signs: Temp Pulse Resp BP Pulse Ox 98.3 F 88 20 143/91 H 97 11/07/18 18:39 11/07/18 18:39 11/07/18 22:01 11/07/18 22:01 11/07/18 22:01 - Laboratory Result Diagrams: 11/07/18 18:45 11/07/18 18:45 Laboratory results interpreted by me: 11/07/18 11/07/18 18:45 18:45 WBC 12.3 H Hct 35.5 L RDW 16.5 H Absolute Neutrophils 8.3 H Direct Bilirubin 0.5 H AST 61 H Alkaline Phosphatase 153 H - EKG Interpretation by Me Additional EKG results interpreted by me: EKG demonstrates sinus rhythm with a ventricular rate of 82 bpm, normal axis, normal intervals, no evidence of acute ischemia in this EKG, no ST changes, is compared with the prior EKG from 02/25/2018, without significant change. Discharge - Discharge Clinical Impression: Chest pain Qualifiers: Chest pain type: unspecified Qualified Code(s): R07.9 - Chest pain, unspecified Condition: Stable Disposition: HOME, SELF-CARE Instructions: Chest Pain of Unclear Cause ([facility]) Additional Instructions: Please follow-up with a lining maker to set up on a stress test and an appointment, call for an appointment on Friday, if you have any worsening symptoms or concerns, he can always return to the emergency department to be r eevaluated. Referrals: JESUS HOPPER MD [EMERITUS] - Follow up in 3-5 days (cardiology )
[2018-11-07 22:39] VITALS: BP 143/91
--- NOTE | 2018-11-07 22:44 | EKG REPORT ---
SEVERITY:- NORMAL ECG - SINUS RHYTHM : Confirmed by: Talat Gandara MD 07-Nov-2018 22:44:18
== END 2018-11-07 22:40 | disposition home or self-care (01) ==
LOC: ER 18:37
DX: R07.9 Chest pain, unspecified (principal); R06.02 Shortness of breath; F17.210 Nicotine dependence, cigarettes, uncomplicated; E66.01 Morbid (severe) obesity due to excess calories; D72.829 Elevated white blood cell count, unspecified; R79.89 Other specified abnormal findings of blood chemistry; Z88.1 Allergy status to other antibiotic agents; Z82.49 Family history of ischemic heart disease and other diseases of the circulatory system
CPT/HCPCS: 36415; 71045; 80053; 84484; 85025; 93005; 93010; 99285

== ENCOUNTER 2019-06-15 20:23 | Emergency (ER) | payer SELFPAY ==
[2019-06-15] MEDS ORDERED: ASPIRIN 81 MG TABLET, CHEWABLE PO ONE (20:25)
[2019-06-15] MEDS ORDERED: KETOROLAC TROMETHAMINE INJ/PF 30 MG/1 ML SDV IV ONE (20:33)
[2019-06-15] MEDS ORDERED: ONDANSETRON HCL INJ/PF 4 MG/2 ML SDV IV ONE (20:35)
--- NOTE | 2019-06-15 20:36 | ER Document Report ---
ED General - General Chief Complaint: Chest Pain Stated Complaint: CHEST PAIN Time Seen by Provider: 06/15/19 20:26 Primary Care Provider: [facility] [Provider Group] - Follow up as needed [facility] [Provider Group] - Follow up as needed Notes: Patient is a morbidly obese 39-year-old female presents to the emergency department for chest pain. States she was putting her son to bed at approx imately 1930 when she developed a squeezing sensation in the center of her chest and into her left shoulder. Patient also voiced generalized nausea. States she did take aspirin per 911 dispatch. Patient voices a primary history of anxiety, takes no daily medications, does smoke about half pack cigarettes a day. Currently upon my assessment patient's only complaining of left shoulder pain. Pain increases when she Moves her left shoulder and upon palpation of anterior left shoulder. Patient's denying any trauma or injury. TRAVEL OUTSIDE OF THE [place] IN LAST 30 DAYS: No - Related Data Allergies/Adverse Reactions: sulfamethoxazole [From Bactrim] Allergy (Verified 02/25/18 09:46) trimethoprim [From Bactrim] Allergy (Verified 02/25/18 09:46) Past Medical History - General Information source: Patient - Social History Smoking Status: Current Every Day Smoker Family History: Arthritis, CAD, CVA, DM, Hyperlipidemia, Hypertension, Malignancy. denies: COPD, Thyroid Disfunction Renal/ Medical History: Denies: Hx Peritoneal Dialysis GI Medical History: Reports: Hx Gastroesophageal Reflux Disease, Hx Colonoscopy Musculoskeletal Medical History: Reports Hx Musculoskeletal Trauma Past Surgical History: Reports: Hx Adenoidectomy, Hx Cholecystectomy, Hx Orthopedic Surgery - right arm, Hx Tonsillectomy - Immunizations Hx Diphtheria, Pertussis, Tetanus Vaccination: No Review of Systems - Review of Systems Constitutional: denies: Fever EENT: No symptoms reported Cardiovascular: See HPI Respiratory: No symptoms reported Gastrointestinal: No symptoms reported Genitourinary: No symptoms reported Female Genitourinary: No symptoms reported Musculoskeletal: See HPI Skin: No symptoms reported Hematologic/Lymphatic: No symptoms reported Neurological/Psychological: No symptoms reported Physical Exam - Vital signs Vitals: Temp Pulse Resp BP Pulse Ox 98.3 F 97 14 159/87 H 97 06/15/19 20:25 06/15/19 20:25 06/15/19 20:25 06/15/19 20:25 06/15/19 20:25 - Notes Notes: GENERAL: Alert, interacts well. No acute distress. HEAD: Normocephalic, atraumatic. EYES: Pupils equal, round, and reactive to light. Extraocular movements intact. ENT: Oral mucosa moist, tongue midline. NECK: Full range of motion. Supple. Trachea midline. LUNGS: Clear to auscultation bilaterally, no wheezes, rales, or rhonchi. No respiratory distress. Chest: No crepitus felt, no erythema ecchymosis noted anterior, posterior chest wall. HEART: Regular rate and rhythm. No murmur ABDOMEN: Morbidly obese, soft, non-tender. Non-distended. Bowel sounds present in all 4 quadrants. EXTREMITIES: Moves all 4 extremities spontaneously. Generalized pain is anterior left shoulder into the left trapezius muscle. Normal radial and thalia salis pedis pulses bilaterally. No cyanosis. BACK: no cervical, thoracic, lumbar midline tenderness. No saddle anesthesia, normal distal neurovascular exam. NEUROLOGICAL: Alert and oriented x3. Normal speech. cranial nerves II through XII grossly intact PSYCH: Normal affect, normal mood. SKIN: Warm, dry, normal turgor. No rashes or lesions noted. Course - Re-evaluation Re-evalutation: 06/15/19 22:59 Pt. voices her CP had resolved shortly after arrival to the ED prior to Toradol administration. Voices she thinks the Zofran made her more nauseated. Pt. is now complaining of a headache. States it is at the base of her neck and she feels it increases with movement of her left shoulder. Will treat with Flexeril and Reglan. Awaiting lab results. BP was noted to be elevated but it was with a forearm cuff. PCT to take manual BP. 06/16/19 00:56 Initial troponin negative. I have gone to discuss this with patient at bedside. She is soundly sleeping, easily arousable to verbal stimuli. Patient voices she overall feels better. Currently awaiting repeat troponin. 06/16/19 02:31 Patient is again sleeping on reassessment. Easily arousable to verbal stimuli. Patient voices she overall feels "so much better." Patient voices she does have to urinate. Patient has had negative delta troponins in the emergency department she does have a heart score of 1 based on her risk factors, obesity and smoking. Patient's EKG shows a sinus rhythm rate of 98, QTc 470, no ST segment elevations or depressions noted. Patient was seen at this facility for same complaints. Was instructed to follow-up with cardiology. Patient voices she is uninsured and never followed up. I discussed use of [facility] in our area. Patient stable for discharge. - Vital Signs Vital signs: Temp Pulse Resp BP Pulse Ox 97.6 F 69 19 146/87 H 95 06/16/19 03:32 06/16/19 03:32 06/16/19 03:32 06/16/19 03:32 06/16/19 03:32 - Laboratory Result Diagrams: 06/15/19 20:43 06/15/19 22:12 Laboratory results interpreted by me: 06/15/19 06/15/19 20:43 22:12 WBC 12.5 H RDW 15.6 H Absolute Neuts (auto) 8.9 H Potassium 3.5 L Alkaline Phosphatase 128 H Total Protein 8.5 H Discharge - Discharge Clinical Impression: Chest pain Qualifiers: Chest pain type: unspecified Qualified Code(s): R07.9 - Chest pain, unspecified Shoulder pain Qualifiers: Chronicity: acute Laterality: left Qualified Code(s): M25.512 - Pain in left shoulder Headache Qualifiers: Headache type: tension-type Headache chronicity pattern: acute headache Intractability: not intractable Qualified Code(s): G44.209 - Tension-type headache, unspecified, not intractable Condition: Stable Disposition: HOME, SELF-CARE Instructions: Chest Pain of Unclear Cause ([facility]), Headache ([facility]) Additional Instructions: As we discussed you have been seen and treated in the emergency department for your chest pain, shoulder pain, headache. Please make sure you follow-up with primary care provider in the next 12 to 24 hours. Phone numbers for [facility] will be provided in this packet. These are clinics you can go to even though you are uninsured. Please immediately return to the emergency room for any concerns. Referrals: [facility] [Provider Group] - Follow up as needed [facility] [Provider Group] - Follow up as needed
[2019-06-15 20:54] LABS: ABSOLUTE BASOPHILS # (AUTO) 0.1 10^3/uL (0.0-0.2); ABSOLUTE EOSINOPHILS # (AUTO) 0.1 10^3/uL (0.0-0.6); ABSOLUTE LYMPHOCYTES (AUTO) 2.8 10^3/uL (0.5-4.7); ABSOLUTE MONOCYTES (AUTO) 0.6 10^3/uL (0.1-1.4); ABSOLUTE NEUT (AUTO) 8.9 10^3/uL (1.7-8.2); BASOPHILS % (AUTO) 1.1 % (0-2); EOSINOPHILS % (AUTO) 0.6 % (0-6); HEMATOCRIT 39.1 % (36.0-47.0); HEMOGLOBIN 13.5 g/dL (12.0-15.5); LYMPHOCYTES % (AUTO) 22.6 % (13-45); MEAN CORPUSCULAR HEMOGLOBIN 30.7 pg (27.0-33.4); MEAN CORPUSCULAR HGB CONC 34.7 g/dL (32.0-36.0); MEAN CORPUSCULAR VOLUME 89 fl (80-97); PLATELET COUNT 337 10^3/uL (150-450); RED BLOOD COUNT 4.41 10^6/uL (3.72-5.28); RED CELL DISTRIBUTION WIDTH 15.6 % (11.5-14.0); SEGMENTED NEUTROPHILS % (AUTO) 70.7 % (42-78); TOTAL CELLS COUNTED % (AUTO) 100 %; WHITE BLOOD COUNT 12.5 10^3/uL (4.0-10.5)
--- NOTE | 2019-06-15 21:23 | RADIOLOGY REPORT (SQ) ---
XR CHEST 1 VIEW CLINICAL STATEMENT: CHEST PAIN COMPARISON: None FINDINGS: Heart is mildly enlarged. There is no focal lung consolidation or pleural effusion. No evidence of pulmonary edema or pneumothorax. IMPRESSION: No acute cardiopulmonary disease.
[2019-06-15 22:48] LABS: ALBUMIN 4.6 g/dL (3.5-5.0); ALKALINE PHOSPHATASE 128 U/L (38-126); ANION GAP 12 (5-19); ASPARTATE AMINO TRANSFERASE 22 U/L (14-36); BILIRUBIN,DIRECT 0.2 mg/dL (0.0-0.4); BILIRUBIN,TOTAL 0.5 mg/dL (0.2-1.3); BLOOD UREA NITROGEN 10 mg/dL (7-20); CALCIUM 9.7 mg/dL (8.4-10.2); CARBON DIOXIDE 25 mmol/L (22-30); CHLORIDE 105 mmol/L (98-107); CREATINE KINASE 81 U/L (30-135); GLUCOSE 104 mg/dL (75-110); POTASSIUM 3.5 mmol/L (3.6-5.0); TOTAL PROTEIN 8.5 g/dL (6.3-8.2)
[2019-06-15] MEDS ORDERED: CYCLOBENZAPRINE HCL 10 MG TABLET PO ONE (22:58)
[2019-06-15] MEDS ORDERED: METOCLOPRAMIDE HCL INJ/PF 10 MG/2 ML SDV IV ONE (22:59)
[2019-06-15 23:01] LABS: CREATINE KINASE MB < 0.22 ng/mL (<4.55); TROPONIN I < 0.012 ng/mL
--- NOTE | 2019-06-15 23:51 | EKG REPORT ---
SEVERITY:- NORMAL ECG - SINUS RHYTHM : Confirmed by: Rhea Deleon MD 15-Jun-2019 23:50:16
[2019-06-16 03:35] VITALS: BP 146/87
== END 2019-06-16 03:35 | disposition home or self-care (01) ==
LOC: ER 20:23
DX: G44.209 Tension-type headache, unspecified, not intractable (principal); R07.9 Chest pain, unspecified; M25.512 Pain in left shoulder; R11.0 Nausea; F41.9 Anxiety disorder, unspecified; F17.210 Nicotine dependence, cigarettes, uncomplicated
CPT/HCPCS: 93005; 99285; 96374; 96375; 36415; 82553; 82550; 85025; 80053; 84484; 71045; 93010; J1885; J2765; J2405

== ENCOUNTER 2020-02-01 19:58 | Emergency (ER) | payer SELFPAY ==
[2020-02-01 20:12] VITALS: BP 155/99
--- NOTE | 2020-02-01 21:16 | ER Document Report ---
ED Medical Screen (RME) - General Chief Complaint: Urinary Problem Stated Complaint: BLOOD IN STOOL,ABDOMINAL PAIN Time Seen by Provider: 02/01/20 21:06 Notes: 39-year-old female presented to ED for complaint of blood in the toilet every time she urinates or has a stool. She states is not vaginal bleeding. She states is in the urine and stool. She also has some lower abdominal pain and cramping. She states this is all started today. She is alert oriented respirations regular and unlabored speaking in full sentences. Patient is morbidly obese at 228.9 kg I have greeted and performed a rapid initial assessment of this patient. A comprehensive ED assessment and evaluation of the patient, analysis of test results and completion of medical decision making process will be conducted by an additional ED providers. TRAVEL OUTSIDE OF THE [place] IN LAST 30 DAYS: No - Related Data Allergies/Adverse Reactions: sulfamethoxazole [From Bactrim] Allergy (Verified 02/01/20 20:55) trimethoprim [From Bactrim] Allergy (Verified 02/01/20 20:55) Past Medical History - Social History Frequency of alcohol use: None Drug Abuse: None Renal/ Medical History: Denies: Hx Peritoneal Dialysis GI Medical History: Reports: Hx Gastroesophageal Reflux Disease, Hx Colonoscopy Musculoskeltal Medical History: Reports Hx Musculoskeletal Trauma Past Surgical History: Reports: Hx Adenoidectomy, Hx Cholecystectomy, Hx Orthopedic Surgery - right arm, Hx Tonsillectomy - Immunizations Hx Diphtheria, Pertussis, Tetanus Vaccination: No Physical Exam - Vital signs Vitals: Temp Pulse Resp BP Pulse Ox 98.6 F 109 H 22 H 155/99 H 97 02/01/20 20:09 02/01/20 20:09 02/01/20 20:09 02/01/20 20:09 02/01/20 20:09 Course - Vital Signs Vital signs: Temp Pulse Resp BP Pulse Ox 98.6 F 109 H 22 H 155/99 H 97 02/01/20 20:56 02/01/20 20:09 02/01/20 20:09 02/01/20 20:09 02/01/20 20:09
[2020-02-01 21:41] LABS: ABSOLUTE BASOPHILS # (AUTO) 0.1 10^3/uL (0.0-0.2); ABSOLUTE EOSINOPHILS # (AUTO) 0.2 10^3/uL (0.0-0.6); ABSOLUTE MONOCYTES (AUTO) 0.8 10^3/uL (0.1-1.4); BASOPHILS % (AUTO) 0.7 % (0-2); EOSINOPHILS % (AUTO) 1.4 % (0-6); HEMATOCRIT 38.7 % (36.0-47.0); HEMOGLOBIN 13.1 g/dL (12.0-15.5); LYMPHOCYTES % (AUTO) 25.3 % (13-45); MEAN CORPUSCULAR HEMOGLOBIN 29.3 pg (27.0-33.4); MEAN CORPUSCULAR HGB CONC 33.8 g/dL (32.0-36.0); MEAN CORPUSCULAR VOLUME 87 fl (80-97); MONOCYTES % (AUTO) 6.2 % (3-13); PLATELET COUNT 341 10^3/uL (150-450); RED BLOOD COUNT 4.47 10^6/uL (3.72-5.28); SEGMENTED NEUTROPHILS % (AUTO) 66.4 % (42-78); TOTAL CELLS COUNTED % (AUTO) 100 %; WHITE BLOOD COUNT 12.1 10^3/uL (4.0-10.5)
[2020-02-01 21:52] LABS: APPEARANCE,URINE CLEAR; BILIRUBIN,URINE NEGATIVE (NEGATIVE); COLOR,URINE YELLOW; GLUCOSE, URINE NEGATIVE (NEGATIVE); KETONES,URINE NEGATIVE (NEGATIVE); LEUKOCYTE ESTERASE,URINE NEGATIVE (NEGATIVE); NITRITE,URINE NEGATIVE (NEGATIVE); PROTEIN,URINE NEGATIVE (NEGATIVE); UROBILINOGEN,URINE NEGATIVE mg/dL (<2.0)
[2020-02-01 21:53] LABS: ADD MANUAL MICROSCOPIC YES
[2020-02-01 22:05] LABS: ALBUMIN 4.2 g/dL (3.5-5.0); ALKALINE PHOSPHATASE 144 U/L (38-126); ANION GAP 7 (5-19); ASPARTATE AMINO TRANSFERASE 22 U/L (14-36); BILIRUBIN,TOTAL 0.5 mg/dL (0.2-1.3); BLOOD UREA NITROGEN 12 mg/dL (7-20); CALCIUM 9.5 mg/dL (8.4-10.2); CARBON DIOXIDE 27 mmol/L (22-30); CHLORIDE 103 mmol/L (98-107); GLUCOSE 107 mg/dL (75-110); POTASSIUM 4.1 mmol/L (3.6-5.0); TOTAL PROTEIN 7.7 g/dL (6.3-8.2)
== END 2020-02-02 01:15 | disposition left against medical advice (07) ==
LOC: ER 19:58
DX: K92.1 Melena (principal); R31.0 Gross hematuria; E66.01 Morbid (severe) obesity due to excess calories; Z88.1 Allergy status to other antibiotic agents; Z53.20 Procedure and treatment not carried out because of patient's decision for unspecified reasons
CPT/HCPCS: 36415; 80053; 81001; 84702; 85025; 99281

== ENCOUNTER 2020-02-11 10:51 | Emergency (ER) | payer SELFPAY ==
--- NOTE | 2020-02-11 11:03 | ER Document Report ---
ED Medical Screen (RME) - General Chief Complaint: Leg Swelling Stated Complaint: LEFT LEG PAIN Time Seen by Provider: 02/11/20 10:56 Notes: Patient is a 39-year-old morbidly obese female who presents the emergency department with a chief complaint of left lower leg pain. She denies any injury. Patient states that last night her leg started hurting. She went to urgent care to get treated for cellulitis and was referred to the emergency [facility] for further evaluation of possible DVT. Patient is an everyday smoker. Exam: Warm tender left lateral lower leg. Obese. I have greeted and performed a rapid initial assessment of this patient. A comprehensive ED assessment and evaluation of the patient, analysis of test results and completion of medical decision making process will be conducted by an additional ED providers. TRAVEL OUTSIDE OF THE [place] IN LAST 30 DAYS: No - Related Data Allergies/Adverse Reactions: sulfamethoxazole [From Bactrim] Allergy (Verified 02/11/20 10:55) trimethoprim [From Bactrim] Allergy (Verified 02/11/20 10:55) Past Medical History - Social History Chew tobacco use (# tins/day): No Frequency of alcohol use: None Drug Abuse: None Renal/ Medical History: Denies: Hx Peritoneal Dialysis GI Medical History: Reports: Hx Gastroesophageal Reflux Disease, Hx Colonoscopy Musculoskeltal Medical History: Reports Hx Musculoskeletal Trauma Past Surgical History: Reports: Hx Adenoidectomy, Hx Cholecystectomy, Hx Orthopedic Surgery - right arm, Hx Tonsillectomy - Immunizations Hx Diphtheria, Pertussis, Tetanus Vaccination: No Physical Exam - Vital signs Vitals: Temp Pulse Resp BP Pulse Ox 97.9 F 113 H 24 H 153/99 H 97 02/11/20 10:54 02/11/20 10:54 02/11/20 10:54 02/11/20 10:54 02/11/20 10:54 Course - Vital Signs Vital signs: Temp Pulse Resp BP Pulse Ox 97.9 F 113 H 24 H 153/99 H 97 02/11/20 10:54 02/11/20 10:54 02/11/20 10:54 02/11/20 10:54 02/11/20 10:54
--- NOTE | 2020-02-11 11:24 | ER Document Report ---
ED Extremity Problem, Lower - General Chief Complaint: Leg Swelling Stated Complaint: LEFT LEG PAIN Time Seen by Provider: 02/11/20 10:56 Notes: CHIEF COMPLAINT: Left leg pain HPI: 39-year-old morbidly obese female presenting for left calf pain for 1 day. Patient went to an urgent care today because of the discomfort was told she might have a cellulitis but they could not rule out a DVT. No chest pain no shortness of breath. No pleuritic pain. No fever ROS: See HPI - all other systems were reviewed and are otherwise negative Constitutional: no fever Eyes: no drainage, no blurred vision ENT: no runny nose, no sore throat Cardiovascular: no chest pain Resp: no SOB, no cough GI: no vomiting, no diarrhea, no abdominal pain : no dysuria Integumentary: + rash Allergy: no hives Musculoskeletal: + extremity pain or swelling Neurological: no numbness/tingling, no weakness MEDICATIONS: I agree with the patient medications as charted by the RN. ALLERGIES: I agree with the allergies as charted by the RN. PAST MEDICAL HISTORY/PAST SURGICAL HISTORY: Reviewed and agree as charted by RN. SOCIAL HISTORY: Reviewed and agree as charted by RN. FAMILY HISTORY: No significant familial comorbid conditions directly related to patient complaint EXAM: Reviewed vital signs as charted by RN. CONSTITUTIONAL: Alert and oriented and responds appropriately to questions. Well-appearing; well-nourished HEAD: Normocephalic; atraumatic EYES: PERRL; Conjunctivae clear, sclerae non-icteric ENT: normal nose; no rhinorrhea; moist mucous membranes; pharynx without lesions noted NECK: Supple without meningismus; non-tender; no cervical lymphadenopathy, no masses CARD: RRR; no murmurs, no clicks, no rubs, no gallops; symmetric distal pulses RESP: Normal chest excursion without splinting or tachypnea; breath sounds clear and equal bilaterally; no wheezes, no rhonchi, no rales, pulse oximetry 98% on room air not hypoxic ABD/GI: Morbidly obese, normal bowel sounds; non-distended; soft, non-tender, no rebound, no guarding; no palpable organomegaly or masses. BACK: The back appears normal and is non-tender to palpation, there is no CVA tenderness EXT: Normal ROM in all joints; unable to differentiate edema in the bilateral lower extremities secondary to morbid obesity. There is some overlying erythema to the bilateral lower extremities anteriorly. There is mild tenderness on palpation of the left calf region on the left leg. Popliteal, dorsalis pedis and posterior tibial pulses are present in the left lower extremity. Sensation is intact in the toes with capillary refill less than 3 seconds SKIN: Normal color for age and race; warm; dry; good turgor; no acute lesions noted NEURO: Moves all extremities equally; Motor and sensory function intact PSYCH: The patient's mood and manner are appropriate. Grooming and personal hygiene are appropriate. MDM: 39-year-old female presenting with left leg pain in the calf region. There is some overlying erythema this may be venous stasis change may be early cellulitis that she is having discomfort. Will rule out DVT with Doppler study. TRAVEL OUTSIDE OF THE [place] IN LAST 30 DAYS: No - Related Data Allergies/Adverse Reactions: sulfamethoxazole [From Bactrim] Allergy (Verified 02/11/20 10:55) trimethoprim [From Bactrim] Allergy (Verified 02/11/20 10:55) Past Medical History - Social History Smoking Status: Current Every Day Smoker Chew tobacco use (# tins/day): No Frequency of alcohol use: None Drug Abuse: None Family History: Arthritis, CAD, CVA, DM, Hyperlipidemia, Hypertension, Malignancy. denies: COPD, Thyroid Disfunction Patient has homicidal ideation: No Renal/ Medical History: Denies: Hx Peritoneal Dialysis GI Medical History: Reports: Hx Gastroesophageal Reflux Disease, Hx Colonoscopy Musculoskeletal Medical History: Reports Hx Musculoskeletal Trauma Past Surgical History: Reports: Hx Adenoidectomy, Hx Cholecystectomy, Hx Orthopedic Surgery - right arm, Hx Tonsillectomy - Immunizations Hx Diphtheria, Pertussis, Tetanus Vaccination: No Physical Exam - Vital signs Vitals: Temp Pulse Resp BP Pulse Ox 97.9 F 113 H 24 H 153/99 H 97 02/11/20 10:54 02/11/20 10:54 02/11/20 10:54 02/11/20 10:54 02/11/20 10:54 Course - Re-evaluation Re-evalutation: 02/11/20 12:01 Discussed with the Doppler tech, Doppler is negative for DVT. Will discharge on Keflex for possible cellulitic treatment follow-up PCP - Vital Signs Vital signs: Temp Pulse Resp BP Pulse Ox 97.9 F 113 H 24 H 153/99 H 97 02/11/20 10:54 02/11/20 10:54 02/11/20 10:54 02/11/20 10:54 02/11/20 10:54 Discharge - Discharge Clinical Impression: Leg pain, left, Chronic acquired lymphedema Cellulitis, leg Qualifiers: Laterality: left Qualified Code(s): L03.116 - Cellulitis of left lower limb Condition: Stable Disposition: HOME, SELF-CARE Additional Instructions: Doppler study was negative for blood clot today. Take the Keflex to treat possible cellulitis. Motrin Tylenol for pain. Follow-up with your primary care provider for recheck of the leg in the next 3 to 4 days return for onset of fever greater than 101 or worsening condition Prescriptions: Cephalexin Monohydrate [Keflex 500 mg Capsule] 500 mg PO Q6H 7 Days #28 capsule Referrals: TIFFANY LAWTON MD [ACTIVE STAFF] - Follow up as needed
[2020-02-11 12:17] VITALS: BP 132/89
--- NOTE | 2020-02-11 14:41 | RADIOLOGY REPORT (SQ) ---
EXAM DESCRIPTION: VENOUS UNILATERAL LOWER IMAGES COMPLETED DATE/TIME: 02/11/2020 2:16 pm REASON FOR STUDY: LLE pain/swelling COMPARISON: None. TECHNIQUE: Dynamic and static cheung scale and color images acquired of the left leg venous system. Se lected spectral images acquired with additional compression and augmentation maneuvers. The contralat eral common femoral vein and saphenofemoral junction were also imaged. Images stored on PACS. LIMITATIONS: Evaluation is limited by the patient's body habitus. FINDINGS: COMMON FEMORAL: Normal phasicity, compression and augmentation. No visualized echogenic ma terial on cheung scale. No defects on color images. FEMORAL: Normal compression and augmentation. No visualized echogenic material on cheung scale. No defe cts on color images. POPLITEAL: Normal compression, augmentation. No visualized echogenic material on cheung scale. No defec ts on color images. CALF VESSELS: Normal compression, augmentation. No visualized echogenic material on cheung scale. No de fects on color images. GSV and SSV: Normal compression, augmentation. No visualized echogenic material on cheung scale. No def ects on color images. ANY DEEP VENOUS INSUFFICIENCY: No. ANY EVIDENCE OF POPLITEAL CYST: No. OTHER: No other significant finding. CONTRALATERAL COMMON FEMORAL VEIN: Normal phasicity, compression and augmentation. No visualized echogenic material on cheung scale. No de fects on color images. IMPRESSION: NO EVIDENCE OF DVT OR SVT IN THE LEFT LEG. TECHNICAL DOCUMENTATION: JOB ID: [id number] 2010 [employer]- All Rights Reserved Reading location - IP/workstation name: [email or web address]
== END 2020-02-11 12:17 | disposition home or self-care (01) ==
LOC: ER 10:51
DX: L03.116 Cellulitis of left lower limb (principal); M79.605 Pain in left leg; R59.0 Localized enlarged lymph nodes; R21 Rash and other nonspecific skin eruption; F17.200 Nicotine dependence, unspecified, uncomplicated; Z88.3 Allergy status to other anti-infective agents
CPT/HCPCS: 93971; 99283

== ENCOUNTER 2020-07-17 09:36 | Emergency (ER) | payer SELFPAY ==
[2020-07-17 09:46] VITALS: BP 153/96
--- NOTE | 2020-07-17 11:03 | ER Document Report ---
ED Oral Problem - General Chief Complaint: Toothache Stated Complaint: FACIAL PAIN,SWELLING Time Seen by Provider: 07/17/20 10:58 Primary Care Provider: ANKIT MAHONEY D[facility] [NO LOCAL MD] - Follow up as needed Mode of Arrival: Ambulatory Information source: Patient Notes: Patient is a 40-year-old female comes emergency room complaining of left facial swelling and pain. Patient does state that she has a broken tooth on the left upper side that started last and is progressively gotten worse. He does state that this morning she got up it was more swollen than it currently is. She has had also some congestion on that left side with some clear rhinorrhea. Mild pain and discomfort is also noted. Patient does smoke. Last menstrual period was June 25. He has allergies to sulfa. TRAVEL OUTSIDE OF THE [place] IN LAST 30 DAYS: No - HPI Patient complains to provider of: Jaw pain, Swelling of face Onset: Last week Onset: Gradual Quality of pain: Achy, Sharp, Throbbing Severity: Moderate Pain Level: 3 Context: Fractured tooth Sore throat: Mild - Warm compresses cellulitis extended down Swollen jaw/face: Mild Associated symptoms: Dental decay, Toothache Worsened by: Heat Relieved by: Nothing Similar symptoms previously: Yes Recently seen / treated by doctor/dentist: No - Related Data Allergies/Adverse Reactions: sulfamethoxazole [From Bactrim] Allergy (Verified 02/11/20 10:55) trimethoprim [From Bactrim] Allergy (Verified 02/11/20 10:55) Past Medical History - Social History Smoking Status: Unknown if Ever Smoked Cigarette use (# per day): Yes Chew tobacco use (# tins/day): No Smoking Education Provided: Yes Frequency of alcohol use: None Drug Abuse: None Lives with: Family Family History: Reviewed & Not Pertinent, Arthritis, CAD, CVA, DM, Hyperlipidemia, Hypertension, Malignancy. denies: COPD, Thyroid Disfunction Patient has homicidal ideation: No Renal/ Medical History: Denies: Hx Peritoneal Dialysis GI Medical History: Reports: Hx Gastroesophageal Reflux Disease, Hx Colonoscopy Musculoskeletal Medical History: Reports Hx Musculoskeletal Trauma Past Surgical History: Reports: Hx Adenoidectomy, Hx Cholecystectomy, Hx Orth opedic Surgery - right arm, Hx Tonsillectomy - Immunizations Hx Diphtheria, Pertussis, Tetanus Vaccination: No Review of Systems - Review of Systems Constitutional: No symptoms reported EENT: See HPI, Dental problem Cardiovascular: No symptoms reported Respiratory: No symptoms reported Gastrointestinal: No symptoms reported Genitourinary: No symptoms reported Female Genitourinary: No symptoms reported Musculoskeletal: No symptoms reported Skin: No symptoms reported Hematologic/Lymphatic: No symptoms reported Neurological/Psychological: No symptoms reported -: Yes All other systems reviewed and negative Physical Exam - Vital signs Vitals: Temp Pulse Resp BP Pulse Ox 98.2 F 107 H 21 H 153/96 H 97 07/17/20 09:45 07/17/20 09:45 07/17/20 09:45 07/17/20 09:45 07/17/20 09:45 Interpretation: Normal, Hypertensive, Tachycardic - Notes Notes: PHYSICAL EXAMINATION: GENERAL: Patient is a well-nourished well-developed morbidly obese female weighing in at 521 pounds. She is noted to be a little tachycardic and hypertensive but she just walked in and sat down. HEAD: Examination patient's external features show some mild swelling in the left maxillary sinus area was notable for late in the upper jaw. There is no fluctuance felt on palpation. No warmth. EYES: Pupils equal round and reactive to light, extraocular movements intact, conjunctiva are normal. ENT: Examination head and upper airway examination to closely monitor erythematous and edematous with no swelling as stated on the left maxillary sinus area. Evaluation of cavity does show severe dental decay throughout the entire mouth. With multiple teeth missing. Patient's main area concern is the left upper incisor area where there is a fractured enamel down to the gum tooth line. LUNGS: Breath sounds clear to auscultation bilaterally and equal. No wheezes rales or rhonchi. HEART: Tachycardic rate and rhythm without murmurs NEUROLOGICAL:. Normal speech, normal gait. Normal sensory, motor exams PSYCH: Normal mood, normal affect. SKIN: Warm, Dry, normal turgor, no rashes or lesions noted. Course - Vital Signs Vital signs: Temp Pulse Resp BP Pulse Ox 98.2 F 94 16 153/96 H 99 07/17/20 09:45 07/17/20 11:00 07/17/20 11:00 07/17/20 09:45 07/17/20 11:00 Discharge - Discharge Clinical Impression: Dental abscess Condition: Stable Disposition: HOME, SELF-CARE Instructions: Dental Infection or Abscess ([facility]), Toothache ([facility]) Additional Instructions: As we have discussed this is a problem cannot fix it emergency room. Highly recommend you follow-up with a dentist as soon as possible. The antibiotic should help alleviate some discomfort and pain Tylenol Motrin for all for the aches and pains. You can use warm water swishes as well. Sinuses you can use nasal saline to keep the nose moist and secretions thin. She did not spike a fever or have increased swelling return to ER for reevaluation. Prescriptions: Amoxicillin/Potassium Clav [Augmentin 875-125 Tablet] 1 tab PO Q12 #20 tablet Forms: Elevated Blood Pressure, Smoking Cessation Education Referrals: ANKIT MAHONEY DDS [NO LOCAL MD] - Follow up as needed
== END 2020-07-17 11:11 | disposition home or self-care (01) ==
LOC: ER 09:36
DX: K04.7 Periapical abscess without sinus (principal); R51.9 Headache, unspecified; F17.210 Nicotine dependence, cigarettes, uncomplicated; E66.01 Morbid (severe) obesity due to excess calories; Z90.49 Acquired absence of other specified parts of digestive tract
CPT/HCPCS: 99283

== ENCOUNTER 2020-09-08 09:13 | Emergency (ER) | payer SELFPAY ==
[2020-09-08 09:25] VITALS: BP 143/102
[2020-09-08 10:19] LABS: ABSOLUTE BASOPHILS # (AUTO) 0.1 10^3/uL (0.0-0.2); ABSOLUTE EOSINOPHILS # (AUTO) 0.2 10^3/uL (0.0-0.6); ABSOLUTE LYMPHOCYTES (AUTO) 2.2 10^3/uL (0.5-4.7); ABSOLUTE MONOCYTES (AUTO) 0.8 10^3/uL (0.1-1.4); BASOPHILS % (AUTO) 0.7 % (0-2); EOSINOPHILS % (AUTO) 1.3 % (0-6); HEMATOCRIT 34.4 % (36.0-47.0); HEMOGLOBIN 12.2 g/dL (12.0-15.5); LYMPHOCYTES % (AUTO) 18.2 % (13-45); MEAN CORPUSCULAR HEMOGLOBIN 29.4 pg (27.0-33.4); MEAN CORPUSCULAR HGB CONC 35.5 g/dL (32.0-36.0); MEAN CORPUSCULAR VOLUME 83 fl (80-97); MONOCYTES % (AUTO) 6.2 % (3-13); PLATELET COUNT 355 10^3/uL (150-450); RED BLOOD COUNT 4.15 10^6/uL (3.72-5.28); RED CELL DISTRIBUTION WIDTH 15.9 % (11.5-14.0); SEGMENTED NEUTROPHILS % (AUTO) 73.6 % (42-78); TOTAL CELLS COUNTED % (AUTO) 100 %; WHITE BLOOD COUNT 12.3 10^3/uL (4.0-10.5)
[2020-09-08 10:25] LABS: INTERNATIONAL RATION (INR) 0.97; PROTHROMBIN TIME 13.1 SEC (11.4-15.4)
[2020-09-08 10:40] LABS: ALBUMIN 3.9 g/dL (3.5-5.0); ALKALINE PHOSPHATASE 132 U/L (38-126); ANION GAP 7 (5-19); ASPARTATE AMINO TRANSFERASE 25 U/L (14-36); BILIRUBIN,DIRECT 0.2 mg/dL (0.0-0.4); BILIRUBIN,TOTAL 0.8 mg/dL (0.2-1.3); BLOOD UREA NITROGEN 10 mg/dL (7-20); CALCIUM 9.2 mg/dL (8.4-10.2); CARBON DIOXIDE 29 mmol/L (22-30); CHLORIDE 100 mmol/L (98-107); GLUCOSE 112 mg/dL (75-110); POTASSIUM 3.9 mmol/L (3.6-5.0); TOTAL PROTEIN 7.5 g/dL (6.3-8.2)
--- NOTE | 2020-09-08 11:46 | ER Document Report ---
Entered by YADI RODRÍGUEZ SCRIBE 09/08/20 1053 Acting as scribe for:IGNACIO BERRY MD ED Wound - General Chief Complaint: Wound Infection Stated Complaint: WOUND CHECK Time Seen by Provider: 09/08/20 10:41 Mode of Arrival: Ambulatory Information source: Patient Notes: This 40-year-old female patient presents to the emergency department today with complaints of an "open wound". Patient mentions that this area began stinging and burning the last few days and last night her daughter looked at this area and noted there to be an open wound that was approximately the size of "two quarters beside each other". She reports that she has been trying to keep the area clean. She has had increasing pain to the area over the last day or 2 which is why she came in today. TRAVEL OUTSIDE OF THE [place] IN LAST 30 DAYS: No - Related Data Allergies/Adverse Reactions: sulfamethoxazole [From Bactrim] Allergy (Verified 02/11/20 10:55) trimethoprim [From Bactrim] Allergy (Verified 02/11/20 10:55) Past Medical History - General Information source: Patient - Social History Smoking Status: Current Every Day Smoker Cigarette use (# per day): Yes Frequency of alcohol use: None Drug Abuse: None Lives with: Family Family History: Reviewed & Not Pertinent, Arthritis, CAD, CVA, DM, Hyperlipidemia, Hypertension, Malignancy GI Medical History: Reports: Hx Gastroesophageal Reflux Disease, Hx Colonoscopy Musculoskeletal Medical History: Reports Hx Musculoskeletal Trauma Past Surgical History: Reports: Hx Adenoidectomy, Hx Cholecystectomy, Hx Orthopedic Surgery - right arm, Hx Tonsillectomy - Immunizations Hx Diphtheria, Pertussis, Tetanus Vaccination: No Review of Systems - Review of Systems Constitutional: No symptoms reported EENT: No symptoms reported Cardiovascular: No symptoms reported Respiratory: No symptoms reported Gastrointestinal: No symptoms reported Genitourinary: No symptoms reported Female Genitourinary: No symptoms reported Musculoskeletal: No symptoms reported Skin: See HPI, Change in color, Lesions Hematologic/Lymphatic: No symptoms reported Neurological/Psychological: No symptoms reported -: Yes All other systems reviewed and negative Physical Exam - Vital signs Vitals: Temp Pulse Resp BP Pulse Ox 98.1 F 109 H 22 H 143/102 H 98 09/08/20 09:23 09/08/20 09:23 09/08/20 09:23 09/08/20 09:23 09/08/20 09:23 - Notes Notes: Physical Exam: General: Alert, appears well. HEENT: Normocephalic. Atraumatic. PERRL. Extraocular movements intact. Oropharynx clear. Neck: Supple. Non-tender. Respiratory: No respiratory distress. Clear and equal breath sounds bilaterally. Cardiovascular: Regular rate and rhythm. Abdominal: Morbidly obese. No distension. Normal Bowel Sounds. Back: No gross abnormalities. Extremities: Moves all four extremities. Upper extremities: Normal inspection. Normal ROM. Lower extremities: Normal inspection. No edema. Normal ROM. Neurological: Normal cognition. AAOx4. Normal speech. Psychological: Normal affect. Normal Mood. Course - Re-evaluation Re-evalutation: 09/08/20 11:10 I did discuss this case with Dr. Crowder, Dr. Tami Kim, in the wound care center. The only solution they could provide me was for the patient to speak with the wound care clinic to get connected with patient care services as the patient is a self-pay patient. In the meantime she can do regular soap and water cleaning and Vaseline gauze dressings to keep the wound edges moist. - Vital Signs Vital signs: Temp Pulse Resp BP Pulse Ox 98.1 F 109 H 22 H 143/102 H 98 09/08/20 09:23 09/08/20 09:23 09/08/20 09:23 09/08/20 09:23 09/08/20 09:23 - Laboratory Results Result Diagrams: 09/08/20 09:59 09/08/20 09:59 Laboratory Results Interpreted: 09/08/20 09/08/20 09/08/20 09:56 09:59 09:59 WBC 12.3 H Hct 34.4 L RDW 15.9 H Absolute Neuts (auto) 9.0 H Sodium 136.1 L Glucose 112 H POC Glucose 111 H Alkaline Phosphatase 132 H Critical Laboratory Results Reviewed: No Critical Results - Radiology Results Critical Radiology Results Reviewed: No Critical Results Discharge - Discharge Clinical Impression: Skin tear Open wound, abdominal wall, lateral Qualifiers: Encounter type: initial encounter Qualified Code(s): S31.109A - Unspecified open wound of abdominal wall, unspecified quadrant without penetration into peritoneal cavity, initial encounter Condition: Stable Disposition: HOME, SELF-CARE Additional Instructions: Keep the wound clean with daily soap and water washing. Use of Vaseline gauze dressing on the wound. Call the wound care clinic at [phone] discuss management at the wound care center. They will help you navigate through patient services to arrange coverage for treatment. I personally performed the services described in the documentation, reviewed and edited the documentation which was dictated to the scribe in my presence, and it accurately records my words and actions.
--- NOTE | 2020-09-12 17:28 | ER Document Report ---
Doctor's Note Notes: 09/12/20 17:26 I was asked to review chart because both blood culture bottles on the wound are growing Enterococcus. I called and spoke with the patient. She states that she has some mild chills and aches but otherwise is doing well and has been able to go to work without problem. No known fevers. She has had no vomiting. She states she has not yet called wound clinic to arrange follow-up. In review of the sensitivities this bacteria should be sensitive to Keflex therefore I have called in a prescription of Keflex to the pharmacy that she asked me to. I have instructed her to follow-up with wound care and that if it anytime she is feeling worse she should return to the emergency department for evaluation.
== END 2020-09-08 11:53 | disposition home or self-care (01) ==
LOC: ER 09:13
DX: S31.109A Unspecified open wound of abdominal wall, unspecified quadrant without penetration into peritoneal cavity, initial encounter (principal); T14.8XXA Other injury of unspecified body region, initial encounter; X58.XXXA Exposure to other specified factors, initial encounter; F17.210 Nicotine dependence, cigarettes, uncomplicated; L98.9 Disorder of the skin and subcutaneous tissue, unspecified; Z88.1 Allergy status to other antibiotic agents
CPT/HCPCS: 36415; 80053; 82962; 85025; 85610; 87040; 87070; 87077; 87150; 87186; 87205; 99283